=== PATIENT | female | born 1970 | race Caucasian/White ===

== ENCOUNTER 2016-10-13 22:23 | Emergency (ER) | payer OTHER ==
[~2016-10-13] VITALS: Ht 170.2 cm; Wt 86.2 kg
[~2016-10-13 22:23] MED LIST: ALBUTEROL17 GM INH; ANTIHISTAMINE PO; ATARAX PO; CIPRO PO; DEXEDRINE10 MG PO; DEXTROAMPHETAMIN5 M1 PO; DOCU SOFT100 M1 PO; FAMOTIDINE PO; IBUPROFEN800 MG PO; LEVAQUIN PO; MEDROL4 MG/DOSE- PO; MOTRIN600 MG PO; NORCO 5/325 TAB1 TAB PO; NUVIGIL150 MG PO; PEPCID PO; PHENERGAN12.5 MG/SU RC; PHENERGAN25 M1 PO; PHENERGAN25 MG PO; PREDNISONE PO; PRILOSEC; PRILOSEC PO; PROTONIX PO; PYRIDIUM PO; ULTRAM PO; VICODIN 5/1 TAB 5/50 PO; ZITHROMAX PO; ZOFRAN ODT4 MG PO; ZYRTEC-D T1 TAB.SR1 PO; ZYRTEC10 M2 PO
[2016-10-13 23:06] LABS: URINE SOURCE CLEAN CATCH
[2016-10-13 23:12] LABS: BASOPHIL# 0.1 X10e3 (0-0.3); BASOPHIL% 0.8 % (0-2.5); EOSINOPHIL# 0.1 X10e3 (0-0.7); EOSINOPHIL% 1.5 % (0.0-7.0); HEMATOCRIT 41.3 % (35.0-45.0); HEMOGLOBIN 13.5 gm/dL (12.0-16.0); LYMPHOCYTE# 2.8 X10e3 (1.0-3.5); MEAN CELL VOLUME 90.9 FL (83-96); MEAN CORPUSCULAR HEMOGLOBIN 29.6 PG (28-34); MEAN CORPUSCULAR HGB CONC 32.5 g/dL (30-36); MEAN PLATELET VOLUME 8.8 FL (6.5-11.5); MONOCYTE# 0.5 X10e3 (0-1.0); MONOCYTE% 4.6 % (3.0-12.0); NEUTROPHIL# 6.6 X10e3 (1.5-7.1); NEUTROPHIL% 65.1 % (40-75); PLATELET COUNT 273 X10e3 (140-420); RED BLOOD COUNT 4.54 X10e (3.90-5.30); RED CELL DISTRIBUTION WIDTH 14.2 % (11.0-15.5); WHITE BLOOD COUNT 10.1 X10e3 (4.0-10.5)
[2016-10-13 23:13] LABS: DIFF IND NO
[2016-10-13 23:15] LABS: URINE APPEARANCE CLEAR; URINE BILIRUBIN NEG (NEG); URINE BLOOD TRACE (NEG); URINE COLOR YELLOW; URINE GLUCOSE NEG (NEG); URINE KETONE NEG (NEG); URINE LEUKOCYTE ESTERASE NEG (NEG); URINE NITRATE NEG (NEG); URINE PROTEIN NEG (NEG); URINE SPECIFIC GRAVITY 1.004 (1.003-1.035); URINE UROBILINOGEN 0.2 MG/DL (NEG)
[2016-10-13 23:19] LABS: URBCS1 AUWI 0-2 /[HPF] (0-2); URINE BACTERIA AUWI NEG (NEGATIVE); URINE SQUAMOUS EPITHELIAL CELL NONE SEEN /[HPF]
[2016-10-13 23:32] LABS: CULTURE INDICATED? NO
[2016-10-13 23:39] LABS: ALBUMIN SERUM 4.2 g/dL (3.5-5.0); BILIRUBIN, DIRECT 0.1 mg/dL (0.0-0.2); BILIRUBIN,INDIRECT 0.3 mg/dL (0.0-0.9); BILIRUBIN,TOTAL 0.4 mg/dL (0.2-2.0); BUN/CREATININE RATIO 11.25; CALCIUM SERUM 9.3 mg/dL (8.4-10.2); CREATININE SERUM 0.8 mg/dL (0.6-1.4); GLOM FILT RATE Estimated 90.4 mL/min (>60); PROTEIN TOTAL SERUM 7.8 g/dL (6.0-8.3)
== END 2016-10-14 00:37 | disposition home or self-care (01) ==
LOC: CED 22:23
DX: R10.9 Unspecified abdominal pain (principal); Z90.710 Acquired absence of both cervix and uterus; F17.200 Nicotine dependence, unspecified, uncomplicated; Z90.49 Acquired absence of other specified parts of digestive tract; Z87.440 Personal history of urinary (tract) infections
CPT/HCPCS: 36415; 80048; 80076; 81003; 83690; 85025; 99284